=== PATIENT | female | born 1945 | race Caucasian/White ===

== ENCOUNTER → 2016-07-05 | Outpatient (CLI) | payer MEDICARE ==
[~2016-07-05] MED LIST: CELEXA20 MG PO; FLEXERIL10 MG PO; FLUOXETINE HCL20 M1 PO; GABAPENTIN600 MG PO; KADIAN10 MG PO; LISINOPRIL HCTZ; LORAZEPAM0.5 MG PO; OXYCODON HCL-1 UDTAB PO; OXYCODON-ACETA1 EAC1 PO; OXYCODONE-ACET1 EACH PO; PHENERGAN25 M1 PO; VASERETIC 10-251 TAB PO; VITAMIN D250000 UNIT PO; XANAX0.5 MG PO
--- NOTE | ~2016-07-05 | US85 ---
[facility] A Service of [facility] RADIOLOGY TEXT RESULTS PATIENT: YAW DE PAZ LOCATION: CNIV : 46 UNIT #: [id number] AGE: [address]: Juanis Ulrich MD SEX: F ORDER DR: [id number] [facility] [address] [place], [place] [address] [id number] O MR#: [id number] Acc #: [id number] NAME: YAW DEP [place] : 1945 SEX: F STUDY DATE/TIME: 07/05/2016 12:11 UNIT: CNIV ROOM: STUDY DESCRIPTION: [employer] Attending Physician: Juanis Ulrich M.D. Referring Physician: Juanis Ulrich M.D. Ordering Physician: Juanis Ulrich M.D. Primary Care Physician: Giovani Palumbo M.D. MEDICAL IMAGING REPORT This report is preliminary unless electronic signature is present EXAM Right lower extremity venous duplex, 07/05/2016. HISTORY Right calf pain for 1 week; evaluate for deep venous thrombosis. TECHNIQUE Grayscale images of the right lower extremity were obtained, as well as Doppler wave forms, spectral analysis, and color flow Doppler imaging. FINDINGS There is normal blood flow and compressibility in the right common femoral vein, deep femoral vein, superficial femoral vein, and popliteal vein. Normal blood flow and compressibility is seen in the right calf veins. There is a 4.7-cm x 1.2-cm x 2.9-cm fluid collection in the right popliteal fossa, characteristic of a Villavicencio cyst. IMPRESSION 1. No evidence of deep venous thrombosis in the right lower extremity. 2. 4.7-cm fluid collection, right popliteal fossa, characteristic of a Villavicencio cyst. Dictated by... Jay Mcclendon M.D. THIS IS AN ELECTRONICALLY VERIFIED REPORT Jay Mcclendon M.D. at 07/06/2016 8:04 AM CAT/radha TD: 07/05/2016 14:00 JOB #: [id number] [facility] A Service of [facility] RADIOLOGY TEXT RESULTS PATIENT: YAW DE PAZ LOCATION: CNIV : 46 UNIT #: [id number] AGE: [address]: Juanis Ulrich MD SEX: F ORDER DR: MEDICAL IMAGING REPORT Page 1 of 1 COPY
== END | disposition home or self-care (01) ==
LOC: CNIV 11:38
DX: M79.604 Pain in right leg (principal); R93.7 Abnormal findings on diagnostic imaging of other parts of musculoskeletal system
CPT/HCPCS: 93971

== ENCOUNTER → 2016-08-31 | Outpatient (CLI) | payer MEDICARE ==
--- NOTE | ~2016-08-31 | CR63 ---
[facility] A Service of [facility] RADIOLOGY TEXT RESULTS PATIENT: YAW DE PAZ LOCATION: [facility] : 46 UNIT #: [id number] AGE: [address]: Juanis Ulrich MD SEX: F ORDER DR: [id number] [facility] [address] [facility]. [place], [place] [address] [id number] O MR#: [id number] Acc #: [id number] NAME: YAW DE PAZ : 1945 SEX: F STUDY DATE/TIME: 08/31/2016 14:50 UNIT: [facility] ROOM: STUDY DESCRIPTION: CR Chest 2 View Attending Physician: Juanis Ulrich M.D. Referring Physician: Juanis Ulrich M.D. Ordering Physician: Juanis Ulrich M.D. Primary Care Physician: Giovani Palumbo M.D. MEDICAL IMAGING REPORT This report is preliminary unless electronic signature is present EXAM 2-view chest INDICATIONS Preoperative evaluation for right knee surgery. PROCEDURE Frontal and lateral views of the chest. COMPARISON None. FINDINGS Mild cardiomegaly. No dense consolidation. No pleural fluid or pneumothorax. IMPRESSION Mild cardiomegaly. No active process. Dictated by... Bj Avila M.D. THIS IS AN ELECTRONICALLY VERIFIED REPORT Bj Avila M.D. at 09/01/2016 10:06 AM VIKKI/vaishnavi TD: 08/31/2016 18:46 JOB #: [id number] MEDICAL IMAGING REPORT Page 1 of 1 COPY
[2016-08-31 13:25] LABS: URINE APPEARANCE CLEAR; URINE BILIRUBIN NEG (NEG); URINE BLOOD NEG (NEG); URINE COLOR YELLOW; URINE GLUCOSE NEG (NEG); URINE KETONE NEG (NEG); URINE LEUKOCYTE ESTERASE 1+ (NEG); URINE NITRATE NEG (NEG); URINE PROTEIN NEG (NEG); URINE SPECIFIC GRAVITY 1.024 (1.003-1.035); URINE UROBILINOGEN 0.2 MG/DL (NEG)
[2016-08-31 13:28] LABS: CULTURE INDICATED? YES; URBCS1 AUWI 0-2 /[HPF] (0-2); URINE BACTERIA AUWI 1+ (NEGATIVE); URINE SQUAMOUS EPITHELIAL CELL NONE SEEN /[HPF]
[2016-08-31 14:34] LABS: HEMOGLOBIN 9.6 gm/dL (12.0-16.0); MEAN CELL VOLUME 76.5 FL (83-96); MEAN CORPUSCULAR HEMOGLOBIN 23.7 PG (28-34); MEAN PLATELET VOLUME 8.7 FL (6.5-11.5); RED BLOOD COUNT 4.06 X10e (3.90-5.30); WHITE BLOOD COUNT 8.2 X10e3 (4.0-10.5)
[2016-08-31 15:17] LABS: CALCIUM SERUM 9.4 mg/dL (8.4-10.2); CREATININE SERUM 0.9 mg/dL (0.6-1.4); GLOM FILT RATE Estimated 64.8 mL/min (>60); POTASSIUM 4.8 mmol/L (3.5-5.1)
== END | disposition home or self-care (01) ==
LOC: CAMB 11:23 → EDSTATUS 12:00
PROVIDERS: Orthopaedic Surgery
DX: Z01.818 Encounter for other preprocedural examination (principal); M17.11 Unilateral primary osteoarthritis, right knee; I51.7 Cardiomegaly
CPT/HCPCS: 36415; 71020; 80048; 81003; 85027; 86850; 86900; 86901; 87070; 87086

== ENCOUNTER 2016-09-09 07:46 | Inpatient (IN) | payer MEDICARE ==
--- NOTE | ~2016-09-09 | DS ---
Unit #: [id number] #: [id number] Patient: YAW DE PAZ [id number] [address] [address] [id number] I MR#: [id number] NAME: YAW DE PAZ. ROOM: 459 Age: 71 Sex: F Admission Date: 09/09/2016 : 1945 Discharge Date: 09/12/2016 Attending Physician: Juanis Ulrich M.D. Referring Physician: Juanis Ulrich M.D. Primary Care Physician: Giovani Palumbo M.D. DISCHARGE SUMMARY FINAL DIAGNOSIS Osteoarthritis right knee, status post right total knee replacement. SECONDARY DIAGNOSES 1. Postoperative anemia secondary to acute blood loss. 2. Hypertension. 3. Anxiety. 4. Chronic back pain. CURRENT MEDICATIONS 1. Gabapentin. 2. Oxycodone. 3. Flexeril. 4. Lisinopril. PAST SURGICAL HISTORY 1. Appendectomy. 2. Right knee arthroplasty. 3. Cataract surgery. 4. Colon resection. 5. Hernia repair. 6. Tubal ligation. 7. Left shoulder surgery. 8. Recent knee replacement. FAMILY HISTORY Nonsignificant. PERSONAL/SOCIAL HISTORY She is currently , but children are closely involved in her care. She is a nonsmoker. REVIEW OF SYSTEMS HEAD/NECK: Unremarkable. CARDIOVASCULAR: Denies any chest pain or shortness of breath. RESPIRATORY: No wheezing or coughing. GENITOURINARY: No urgency or frequency. MUSCULOSKELETAL: Arthritis and chronic back pain. He is attending pain clinic. CENTRAL NERVOUS SYSTEM: Denies any syncope or seizures. BLOOD: No abnormal clotting or bleeding. ENDOCRINE: Denies any diabetes or thyroid disorder. CLINICAL EXAMINATION Unit #: [id number] #: [id number] Patient: YAW DE PAZ VITAL SIGNS: She is afebrile, pulse 65 per minute, and blood pressure 112/78. HEAD/NECK: Normal. CARDIOVASCULAR: Heart S1 and S2 heard. RESPIRATORY: Bilateral breath sounds heard. ABDOMEN: Soft. No organomegaly. Bowel sounds present. RIGHT KNEE: Currently in a dressing. The wound looks well. No calf tenderness. She has good range of motion. No neurovascular deficits. DIAGNOSTIC STUDIES IMAGING: X-rays reveal the right total replacement in satisfactory alignment. HOSPITAL COURSE Patient was admitted following right knee replacement. A medical consult was obtained from Dr. Mota. She was started on physical therapy with range of motion on CPM and full weightbearing ambulation with a walker. Also, necessary thromboembolic precautions were taken with Lovenox 40 mg once daily. With continued medical and rehab management, patient has shown progressive improvement. She is currently ambulating with a walker full weightbearing. She will be transferred to the rehab facility for further medical and rehab management. She will continue with Lovenox 40 mg subcutaneous once daily for the next 11 days. Her pain medications are Percocet 7.5 mg p.o. q.6 hours p.r.n. She regularly gets her medication from the pain clinic. She will continue with her current medications. Her sutures can be removed in two weeks if the wound looks well. She will be followed in my office in three weeks. If any problems, can contact me. Dictated by... Emerita Conn/naveen TD: 09/12/2016 18:03 JOB #: [id number] DISCHARGE SUMMARY Page 1 of 1 X Juanis Ulrich MD X DISCHARGE SUMMARY
--- NOTE | ~2016-09-09 | CO ---
Unit #: [id number] #: [id number] Patient: YAW GOMEZ [id number] [address] [address] [id number] I MR#: [id number] NAME: YAW GOMEZ. ROOM: 459 Age: 71 Sex: F Admission Date: 09/09/2016 : 1945 Attending Physician: Juanis Ulrich M.D. Primary Care Physician: Giovani Palumbo M.D. Requesting Physician: Juanis Ulrich M.D. Consultation Date: 09/09/2016 CONSULTATION REPORT REASON FOR CONSULTATION Medical management. HISTORY OF PRESENT ILLNESS Ms. Gomez is a 71-year-old female with a past medical history of osteoarthritis, chronic low back pain, hypertension and anxiety, who was admitted per the orthopedic service per Dr. Ulrich and underwent right total knee replacement today. She is currently comfortable postoperatively, alert and oriented times three. She states her postoperative pain is well taken care of. She is on APPLICATION SUPPORT TECHNICIAN. She denies any chest pain, shortness of breath, dyspnea, fever, chills, nausea, vomiting, diarrhea or abdominal pain. PAST MEDICAL HISTORY 1. Significant for history of hypertension. 2. Anxiety. 3. Osteoarthritis. 4. Chronic low back pain. PAST SURGICAL HISTORY 1. Back surgery. 2. Epidural injections. 3. Partial colectomy secondary to diverticulitis. SOCIAL HISTORY Denies any tobacco, alcohol or illicit drugs. FAMILY HISTORY Unremarkable. ALLERGIES Bentyl and baclofen. MEDICATIONS Home medications have been reviewed. Currently she is on 1. Vitamin D. 2. Neurontin. 3. Senokot. 4. Lovenox. 5. Flexeril. 6. Morphine per APPLICATION SUPPORT TECHNICIAN pump as above. 7. Percocet. 8. Ambien. 9. Milk of Magnesia p.r.n. Unit #: [id number] #: [id number] Patient: YAW GOMEZ 10. Bisacodyl suppository. 11. Tylenol p.r.n. 12. Benadryl p.r.n. 13. Zofran p.r.n. 14. She is getting lactate ringers. 15. Hydrochlorothiazide. 16. Zestril. 17. Kefzol. REVIEW OF SYSTEMS Twelve point review of systems on this patient is basically negative except as above. PHYSICAL EXAMINATION GENERAL: The patient is a pleasant 71-year-old female in no acute distress. VITALS: Blood pressure 125/51, heart rate 60, respiratory rate 15, temperature 97.9. HEENT: Head is atraumatic. Pupils equal, round and reactive to light and accommodation. Extraocular muscles intact. Oropharynx clear. NECK: Supple. No masses. No jugular venous distension. No bruits. CHEST: Diminished bilaterally at the bases, but generally clear. HEART: S1 and S2. No murmurs. ABDOMEN: Obese, soft, nontender and nondistended. Bowel sounds present. EXTREMITIES: Lower extremities without any cyanosis, clubbing or edema. NEUROLOGIC: The patient is grossly intact. No focal deficits. DIAGNOSTIC STUDIES LABORATORY: PT/INR 1.0, white blood cell count 7.6, hemoglobin 10.2, hematocrit 33.4. ASSESSMENT/PLAN 1. Osteoarthritis, status post right total knee replacement. Continue morphine APPLICATION SUPPORT TECHNICIAN. Continue supportive care with symptomatic management. Continue DVT prophylaxis with Lovenox. 2. Hypertension. Continue Zestril and HCTZ. Stable. 3. Chronic pain. Currently on APPLICATION SUPPORT TECHNICIAN and Percocet. 4. History of anxiety. 5. Anemia of chronic disease, stable. Monitor. 6. GI and DVT prophylaxis. Start Protonix. Continue Lovenox. I would like to thank Dr. Ulrich for allowing us to participate in this pleasant patient's care. We will follow along with you. Thank you very much. Dictated by... Emerita Bass/kim TD: 09/10/2016 06:35 JOB #: [id number] Unit #: [id number] #: [id number] Patient: YAW GOMEZ CONSULTATION REPORT Page 1 of 1 X Parrish Durbin MD CONSULTATION REPORT
--- NOTE | ~2016-09-09 | OR ---
Unit #: [id number] #: [id number] Patient: YAW DE PAZ [id number] [address] [place], [place] [address] [id number] I MR#: [id number] NAME: YAW DE PAZ. ROOM: 459 Date of Procedure: 09/09/2016 Admission Date: 09/09/2016 Surgeon: Juanis Ulrich M.D. : 1945 Attending Physician: Juanis Ulrich M.D. Referring Physician: Juanis Ulrich M.D. Primary Care Physician: Giovani Palumbo M.D. OPERATIVE REPORT PREOPERATIVE DIAGNOSIS Osteoarthritis, right knee. POSTOPERATIVE DIAGNOSIS Osteoarthritis, right knee. PROCEDURE PERFORMED Right total knee replacement. NURSE PRACTITIONER ADULT Dr. Gary Lassiter. IMPLANT USED 1. PFC Sigma fixed tibial tray, size 2.5, cemented. 2. Sigma femoral cruciate retaining, cemented, size 3 right. 3. Oval-dome patella, 32 mm. 4. Sigma tibial insert, fixed bearing, curved plus, size 2.5, 8 mm thick. HISTORY AND FINDINGS The patient is a 71-year-old who has been having progressively increasing pain in her knee and swelling. She had been treated conservatively with medications and injections and continues to have persistent symptoms with x-ray showing advanced osteoarthritis, was offered a knee replacement. Procedure was explained including risks of anesthesia and complications of surgery like infection, neurovascular injury, stiffness; postoperative complications like DVT, pneumonia; late complications like loosening, infection, need for further surgery have been explained. The patient voices understanding and wishes to proceed. DESCRIPTION OF PROCEDURE After induction of general anesthesia, the patient's right knee was prepped and draped in the usual sterile manner. Time-out was called. Operative site was confirmed. Esmarch was applied. Tourniquet was inflated to 300 mm. Through a midline incision approximately 6 inches long was made centering over the patella. The incision deepened down, carried down, and a medial arthrotomy was performed. The patella was flipped laterally. Significant joint fluid was evacuated and with the knee in flexion, osteophytes were removed along with ACL and menisci. Infrapatellar fat pad was excised. Then, osteophytes from the intercondylar notch also were removed. An intramedullary drill hole was made in the femur. The intramedullary alignment adnette with the distal femoral cutting block set for 10 mm offset and 5 degree valgus cut was Unit #: [id number] #: [id number] Patient: YAW DE PAZ pinned in position. Distal femoral cut was made. Then, with the knee in flexion, a femoral component sizer was used. Size 3 femoral component was chosen and was pinned for a 3 degree external rotation. Size 3 cutting block was pinned in position. Anterior, posterior, and chamfer cuts were made, and additional osteophytes from the lateral aspect of the femur were then excised. Then, with the tibia subluxed forward, an extramedullary alignment guide for the proximal tibial cut was set for a 3 degree slope and -4 mm off the lateral side was chosen and the cutting block was pinned in position. Then, drop danette was used to check the cut, was found to be satisfactory, and the proximal tibial cut was made. Spacer block was used to check the flexion and extension gap. The 8-mm spacer block showed good stability in flexion and extension. At this point, the trial components were introduced and the knee was taken through range of motion and was found to be stable in flexion and extension. The rotation was marked on the proximal tibia. At this point, the patella was flipped and the patella was osteotomized and sized for a 32 mm domed patella button, and peg holes for the patella button were then drilled. With the trial components in, the knee was taken through range of motion and was found to be stable in flexion and extension with good tracking of the patella. Then, the trial components were removed and size 2.5 tibial baseplate was pinned in position and the keel was punched. Following which, the cut surface was thoroughly irrigated and kept dry. Two simplex cement bags were used with 1 g of vancomycin. With the cement mixed, the size 2.5 tibial tray was cemented in place in proper rotation. Excess cement was cut and curetted. Then, the size 3 PFC Sigma right femoral component was cemented. Excess cement was cut and curetted. Then, 8 mm poly was reduced into the tibial baseplate and with the knee in extension and cement curing, the patella button was next cemented. With the 32 mm patellar button, excess cement was cut and curetted. While the cement was curing, a 3-minute Betadine soak was done. Following which, with hardening of the cement, the knee was taken through range of motion and was found to be stable in flexion and extension. At this point, intra-articular injection was injected into the joint capsule including the posterior capsule and the arthrotomy wound and subcutaneous tissue. Approximately 80 mL was injected. At the end of this, the trial poly was removed and a curved +2.5 x 8 mm poly insert was reduced into the tibial tray. The knee was taken through range of motion and was found to be stable. The tourniquet was let down. Hemostasis was obtained. Again, wound was thoroughly irrigated. Following which, #1 Vicryl was used to close the medial arthrotomy wound, 0 Vicryl for the deep subcu, and 2-0 plain for the subcutaneous tissue and skin rahat. Sterile compression dressing was applied. Blood loss approximately 100 mL. The patient received preop antibiotics, tolerated the procedure well, and was transferred to the recovery room in satisfactory condition. Dictated by... Emerita Conn/khalida TD: 09/10/2016 09:23 JOB #: [id number] Unit #: [id number] #: [id number] Patient: YAW DE PAZ OPERATIVE REPORT Page 1 of 1 X Juanis Ulrich MD X PROCEDURE OPERATIVE NOTE
--- NOTE | ~2016-09-09 | CR170 ---
[facility] A Service of [facility] RADIOLOGY TEXT RESULTS PATIENT: YAW DE PAZ LOCATION: [place] [address] : [birth year] UNIT #: [id number] AGE: [address]: Juanis Ulrich MD SEX: F ORDER DR: [id number] [facility] [address] [facility]. [place], [place] [address] [id number] I MR#: [id number] Acc #: [id number] NAME: YAW DE PAZ. : 1945 SEX: F STUDY DATE/TIME: 09/09/2016 13:22 UNIT: [facility] ROOM: [facility] STUDY DESCRIPTION: CR Knee 2 Views Rt Attending Physician: Juanis Ulrich M.D. Referring Physician: Juanis Ulrich M.D. Ordering Physician: Juanis Ulrich M.D. Primary Care Physician: Giovani Palumbo M.D. MEDICAL IMAGING REPORT This report is preliminary unless electronic signature is present EXAM Right knee, two views. HISTORY Status post knee arthroplasty. FINDINGS Two views are submitted and compared to 04/28/16. Postop changes of right total knee arthroplasty. Position and alignment of the prosthesis appears satisfactory. CONCLUSION Expected postop appearance following right total knee arthroplasty. Dictated by... Brandon Brandt M.D. THIS IS AN ELECTRONICALLY VERIFIED REPORT Bradnon Brandt M.D. at 09/19/2016 2:59 PM PRABHAKAR/erik TD: 09/09/2016 20:06 JOB #: [id number] MEDICAL IMAGING REPORT Page 1 of 1 COPY
[2016-09-09 08:48] LABS: HEMATOCRIT 33.4 % (35.0-45.0); HEMOGLOBIN 10.2 gm/dL (12.0-16.0); MEAN CELL VOLUME 76.8 FL (83-96); MEAN CORPUSCULAR HEMOGLOBIN 23.5 PG (28-34); MEAN CORPUSCULAR HGB CONC 30.6 g/dL (30-36); RED BLOOD COUNT 4.34 X10e (3.90-5.30); RED CELL DISTRIBUTION WIDTH 17.9 % (11.0-15.5); WHITE BLOOD COUNT 7.6 X10e3 (4.0-10.5)
[2016-09-10 04:09] LABS: HEMATOCRIT 24.9 % (35.0-45.0); MEAN CELL VOLUME 77.2 FL (83-96); MEAN CORPUSCULAR HEMOGLOBIN 23.7 PG (28-34); MEAN CORPUSCULAR HGB CONC 30.7 g/dL (30-36); MEAN PLATELET VOLUME 9.4 FL (6.5-11.5); RED BLOOD COUNT 3.22 X10e (3.90-5.30); RED CELL DISTRIBUTION WIDTH 17.8 % (11.0-15.5); WHITE BLOOD COUNT 9.4 X10e3 (4.0-10.5)
[2016-09-10 04:19] LABS: HEMOGLOBIN 7.6 gm/dL (12.0-16.0)
[2016-09-10 04:26] LABS: BUN/CREATININE RATIO 16.92; CALCIUM SERUM 7.6 mg/dL (8.4-10.2); CREATININE SERUM 1.3 mg/dL (0.6-1.4); GLOM FILT RATE Estimated 41.5 mL/min (>60)
[2016-09-10 07:20] LABS: HEMATOCRIT 24.3 % (35.0-45.0); HEMOGLOBIN 7.4 gm/dL (12.0-16.0)
[2016-09-11 03:56] LABS: BASOPHIL# 0.1 X10e3 (0-0.3); BASOPHIL% 0.8 % (0-2.5); EOSINOPHIL# 0.3 X10e3 (0-0.7); EOSINOPHIL% 3.1 % (0.0-7.0); HEMATOCRIT 25.2 % (35.0-45.0); HEMOGLOBIN 8.1 gm/dL (12.0-16.0); LYMPHOCYTE# 1.3 X10e3 (1.0-3.5); LYMPHOCYTE% 13.4 % (17.0-45.0); MEAN CELL VOLUME 77.7 FL (83-96); MEAN CORPUSCULAR HEMOGLOBIN 24.8 PG (28-34); MEAN CORPUSCULAR HGB CONC 31.9 g/dL (30-36); MEAN PLATELET VOLUME 9.2 FL (6.5-11.5); MONOCYTE# 1.2 X10e3 (0-1.0); MONOCYTE% 12.9 % (3.0-12.0); NEUTROPHIL# 6.6 X10e3 (1.5-7.1); NEUTROPHIL% 69.8 % (40-75); PLATELET COUNT 165 X10e3 (140-420); RED BLOOD COUNT 3.25 X10e (3.90-5.30); RED CELL DISTRIBUTION WIDTH 18.5 % (11.0-15.5); WHITE BLOOD COUNT 9.5 X10e3 (4.0-10.5)
[2016-09-11 03:59] LABS: DIFF IND NO
[2016-09-12 03:01] LABS: MEAN CORPUSCULAR HEMOGLOBIN 24.7 PG (28-34); MEAN CORPUSCULAR HGB CONC 32.1 g/dL (30-36); MEAN PLATELET VOLUME 9.2 FL (6.5-11.5); RED BLOOD COUNT 3.25 X10e (3.90-5.30); RED CELL DISTRIBUTION WIDTH 18.5 % (11.0-15.5); WHITE BLOOD COUNT 7.9 X10e3 (4.0-10.5)
[2016-09-12 03:33] LABS: BUN/CREATININE RATIO 12.5; CALCIUM SERUM 8.2 mg/dL (8.4-10.2); CREATININE SERUM 0.8 mg/dL (0.6-1.4); GLOM FILT RATE Estimated 74.8 mL/min (>60); POTASSIUM 3.7 mmol/L (3.5-5.1)
== END 2016-09-12 15:40 | DRG 470 ==
LOC: CSUR 07:46 → CPACUOF 10:57 → CSUR 10:57 → C4B 13:13 → CPACUOF 13:13 → C4B 15:03
PROVIDERS: Hospitalist; Orthopaedic Surgery; Physician Assistant Medical
PROC: 0SRC0J9 Replacement of Right Knee Joint with Synthetic Substitute, Cemented, Open Approach (ICD-10-PCS; principal; 2016-09-09 10:00)
PROC: 30233N1 Transfusion of Nonautologous Red Blood Cells into Peripheral Vein, Percutaneous Approach (ICD-10-PCS; 2016-09-10)
DX: M17.11 Unilateral primary osteoarthritis, right knee (principal); I95.9 Hypotension, unspecified; D62 Acute posthemorrhagic anemia; D63.8 Anemia in other chronic diseases classified elsewhere; I10 Essential (primary) hypertension; F41.9 Anxiety disorder, unspecified; G89.29 Other chronic pain; M54.9 Dorsalgia, unspecified; Z90.49 Acquired absence of other specified parts of digestive tract; Z88.8 Allergy status to other drugs, medicaments and biological substances; K21.9 Gastro-esophageal reflux disease without esophagitis; Z87.440 Personal history of urinary (tract) infections; Z98.51 Tubal ligation status; Z98.42 Cataract extraction status, left eye; Z98.41 Cataract extraction status, right eye
CPT/HCPCS: 73560; 80048; 85014; 85018; 85025; 85027; 85610; 86850; 86900; 86901; 86923; 94760; 97110; 97116; 97162; 97530; C1776; G8978-GP; G8979-GP; J0171; J0330; J0690; J0735; J1650; J1885; J2250; J2270; J2405; J2550; J2710; J2795; J3010; J3370; P9016